=== PATIENT | male | born 1975 | race Caucasian/White ===

== ENCOUNTER → 2025-02-19 14:32 | Outpatient (BNVA) | payer OTHER, SELFPAY | PROVIDERS: Visit Provider Student in an Organized Health Care Education/Training Program | DX: M25.521 Pain in right elbow (principal); S59.901A Unspecified injury of right elbow, initial encounter; G56.21 Lesion of ulnar nerve, right upper limb; W19.XXXA Unspecified fall, initial encounter | CPT/HCPCS: 73080 ==

== ENCOUNTER 2025-03-07 14:24 | Outpatient (CLI) | payer OTHER, SELFPAY ==
--- NOTE | 2025-03-07 15:15 | MR_ITS ---
WS: [id number] MRI RIGHT ELBOW WITH AND WITHOUT CONTRAST. COMPARISON: Radiographs 02/19/2025 Multiplanar, multisequence imaging is performed with and without contrast. Sagittal and axial T1 fat sat sequences post-MultiHance 20 cc IV. No acute fracture. There is a small amount of marrow edema in the posterior olecranon closely associated with the insertion site of the triceps tendon. No avulsion fracture site identified. The ulnar nerve is normal in size. Normal signal of the ulnar nerve. There is a very small amount of fluid closely associated with the ulnar collateral ligament. There is a very small amount of intermediate signal with thickening of the common flexor tendon and the ulnar collateral ligament near the origin from the medial epicondyle. No tear or retraction. The ulnar nerve is closely associated with the edema but appears appropriate in size and signal. The radial collateral ligament and extensor tendon are negative. There is a tiny subcortical cyst at the insertion site of the common extensor tendon. This is probably degenerative in etiology. There is mild thickening of the olecranon bursa with enhancement. Not a lot of fluid distending the bursa but there is mild thickening and increased signal in the bursal wall. MR/MR elbow RT wo/w con [id number] IMPRESSION: 1. Very mild increased signal and thickening involving the ulnar collateral li gament and the flexor tendon near the insertion at the medial epicondyle. Consi stent with very mild tendinopathy. No tendon tear identified. 2. Ulnar nerve closely associated with a small amount of edema associated with tendinopathy but the ulnar nerve appears intact. 3. Mild olecranon bursitis. No significant fluid distention of the bursa but t here is wall thickening and enhancement. This may be posttraumatic. This also c an be seen with infection or rheumatoid arthropathy. 4. Chronic appearing subchondral cyst at the lateral epicondyle, insertion sit e of the common extensor tendon. 5. No marrow edema identified. No donor site of the possible avulsion fracture seen on the radiograph.
[2025-03-07] MEDS: gadobenate dimeglumine 20 mL vial IV (15:51)
== END 2025-03-07 14:25 | disposition home or self-care (01) ==
LOC: RAD 14:24
PROVIDERS: Visit Provider Student in an Organized Health Care Education/Training Program
DX: M70.21 Olecranon bursitis, right elbow (principal)
CPT/HCPCS: 73223; A9577